=== PATIENT | male | born 1940 | race Caucasian/White ===

== ENCOUNTER 2017-01-05 14:24 | Inpatient (IN) | payer MEDICARE ==
[~2017-01-05] VITALS: Ht 189.2 cm; Wt 141.1 kg
[2017-01-09] MEDS ORDERED: RAPA8CAP PO (12:22)
[2017-01-09] MEDS ORDERED: VESI10TA PO (12:22)
[2017-01-09] MEDS ORDERED: TOPR25TA PO (12:22)
[2017-01-09] MEDS ORDERED: ESCI20TA PO (12:22)
[2017-01-09] MEDS ORDERED: GABA300C5 PO (12:22)
[2017-01-09] MEDS ORDERED: VALS320T4 PO (12:22)
[2017-01-09] MEDS ORDERED: ATOR10TA15 PO (12:22)
[2017-01-09] MEDS ORDERED: MIRA50TA PO (12:22)
[2017-01-09] MEDS ORDERED: AMLO10TA2 PO (12:22)
[2017-01-09] MEDS ORDERED: COUM5TAB PO (12:22)
[2017-01-09] MEDS ORDERED: HYDR-3580 PO (12:22)
[2017-01-24] MEDS ORDERED: LACTATED RINGER'S 1000 ML IV PRN (05:45)
[2017-01-24] MEDS ORDERED: SODIUM CHLORID 0.9% 500 ML IV PRN (05:45)
[2017-01-24] MEDS ORDERED: VANCOMYCIN 1000 MG/NS 250 ML (for <70 kg) IV SCH ×2 (05:45)
[2017-01-24] MEDS ORDERED: CHLORHEXIDINE GLUCONATE 2 % 1 PACK (2 CLOTHS) TOPICAL PRN (05:45)
[2017-01-24] MEDS ORDERED: EXPAREL PERI-ARTICULAR INJECTION (TOTAL VOL. 60 ML) P-ARTICULR SCH ×2 (05:45)
[2017-01-24] MEDS ORDERED: METOPROLOL TARTRATE 25 MG TAB PO PRN (05:45)
[2017-01-24] MEDS ORDERED: POVIDONE IODINE 5% (ANTISEPSIS KIT) 4 APPLICATIONS EACH NARE PRN (05:45)
[2017-01-24] MEDS ORDERED: SODIUM CHLORIDE 0.9% IV SCH (05:45)
[2017-01-24] MEDS ORDERED: CHLORHEXIDINE GLUCONATE 4% SOLN 120 ML BTL TOPICAL SCH (05:45)
[2017-01-24] MEDS ORDERED: TRANEXAMIC ACID IV SCH (05:45)
[2017-01-24] MEDS ORDERED: INSULIN HUMAN REGULAR 1,000 UNITS/10 ML VIAL SQ PRN (05:45)
[2017-01-24 06:14] LABS: BLOOD, URINE NEG (NEG); COMMENT (UR) CULT NOT INDICATED; CULTURE IF INDICATED CULT NOT INDICATED; GLUCOSE,URINE NEG (NEG); KETONE, URINE NEG (NEG); MUCUS URINE FEW /lpf (OCC); NITRITE,URINE NEG (NEG); TRANSITIONAL EPI CELLS, URINE <1 /hpf; URINE COLOR YELLOW (YELLW/STRAW)
[2017-01-24] MEDS ORDERED: GENTAMICIN SULFATE 80 MG/2 ML VIAL ONE (06:15)
[2017-01-24 06:16] LABS: INTERNATIONAL NORMALIZED RATIO 1.1 RATIO; PROTHROMBIN TIME - PATIENT 12.6 SEC (9.8-11.6)
[2017-01-24] MEDS ORDERED: VANCOMYCIN HCL 1000 MG VIAL ONE (06:19)
[2017-01-24] MEDS: ceFAZolin 2 GM PREMIX 50 ML IV SCH ×6 (07:52→21:05)
[2017-01-24 08:47] LABS: BLOOD GAS BASE EXCESS 0.3 mmol/L (-2-2); BLOOD GAS CARBOXYHEMOGLOBIN 1.2 % (0-4); BLOOD GAS HCO3 25 mmol/L (22-26); BLOOD GAS METHEMOGLOBIN 1.4 % (0-2); BLOOD GAS O2 HGB SATURATION 96 % (90-100); BLOOD GAS OXYGEN CONTENT 18.2 Vol % (12.0-20.0); BLOOD GAS PCO2 47 mmHg (38-42); BLOOD GAS PO2 107 mmHg (61-120); BLOOD GAS TOTAL HGB 13.4 G/DL (12.0-16.0); CRITICAL VALUE NO; OXYGEN DEVICE VENTILATOR; TEMP CORR TO 98.6
[2017-01-24 08:48] LABS: STAT YES; VENT SETTINGS OR
[2017-01-24] MEDS ORDERED: ONDANSETRON HCL 4 MG/2 ML VIAL IVP PRN (09:15)
[2017-01-24] MEDS ORDERED: diphenhydrAMINE HCL 25 MG CAP PO PRN (09:15)
[2017-01-24] MEDS ORDERED: NALOXONE HCL 0.4 MG/ML AMP IV PRN (09:15)
[2017-01-24] MEDS ORDERED: SODIUM CHLORIDE 0.9% FLUSH 5 ML FLUSH IVF PRN (09:15)
[2017-01-24] MEDS ORDERED: MORPHINE SULFATE 4 MG/ML INJ IV PUSH PRN (09:15)
--- NOTE | 2017-01-24 09:17 | PD.OP ---
cc: Alden Zamarripa MD Operative Report Date of Surgery: Jan 24, 2017 Preoperative Diagnosis: Severe left hip osteoarthritis Postoperative Diagnosis: Procedure: Left total hip arthroplasty via posterior approach Anesthesia: Gen. Surgeon: Alden Zamarripa Document Control Clerk(s): Jules Ennis PA-C The surgical procedure was assisted by my physician bindery assistant. My P.A. presence was necessary throughout this case for the manipulation and positioning of the surgical extremity. My P.A. was assisting me throughout the duration of this procedure. The skill set of a physician bindery assistant was medically necessary to complete this procedure. During the surgical case the surgical dental assistant was working at the back table and the physician bindery assistant was directly assisting me. Operation and Findings: Weight bear as tolerated. DRAINS: 7-mm LUCAS drain. IMPLANTS USED DePuy Corail size [7] Rosser high offset stem with a size [58] [place] Gription cup and a [36+8.5] metal head. DETAILS OF PROCEDURE: This patient has a long history of hip pain. Patient was found to have severe osteoarthritis. The patient had radiographic evidence of joint space narrowing with [id number] arthritis and osteophytes around the acetabulum as well as the femoral head. There was also some cystic changes. The patient failed conservative treatment with pain medications, anti-inflammatories, physical therapy, assistive devices including a cane, as well as therapeutic injection of the hip. The patient wished to proceed with surgery and informed consent was obtained. Operative site was marked. I discussed both posterior approach and anterior approach with patient decision was made for posterior approach. Patient was brought to OR and placed on OR table. IV sedation and general anesthesia was administered by anesthesiologist. Patient was positioned lateral on the operating room table and was given IV antibiotics. Time-out procedure was performed. The operative hip and leg were prepped with alcohol followed by Hibiclens and draped in the usual sterile fashion. Clean Air Suite was used for this procedure. The procedure began with a 8-inch incision over the posterolateral thigh. Subcutaneous tissue was dissected with Bovie. The fascia of the iliotibial band was incised. Gluteus muscle was split in line with fibers. Charnley retractor was placed. Piriformis and external rotator muscles were identified and then released from the posterior femur. The hip capsule was incised and sutures were placed to help retract the capsule. At this point the femoral head and neck were identified. With soft tissue protected, oscillating saw was used to make a cut through the femoral neck, the femoral head was now removed. At this point attention was turned to preparation of the acetabulum. The labrum was excised. The acetabulum was sequentially reamed appropriately up to size 58. Care was taken to maintain appropriate version. A trial cup was placed and was found to be a good fit. A [place] cup was now fully impacted into the acetabulum and found to have excellent fit. A screw was placed into the dome of the cup for additional stability. Hole eliminator was now placed. The 36+410 liner was now impacted into the cup. At this point attention was turned towards preparation of the proximal femur. Retractors were placed around the proximal femur to allow for exposure. A box osteotome was used to remove the lateral cortex of the femoral neck. A broach was used to help lateralize the prosthesis. Canal finder was used to create a path down the canal. Next, the canal was sequentially reamed up to size 7. The canal was now sequentially broached up to size 7. This was an excellent fit. Calcar planer was placed. A trial head was placed and the hip was reduced. Trial head was now was placed and the hip was found to have excellent stability with good range of motion. The leg lengths were measured under clinically and found to be equal compared to preoperatively. Trial broach was removed. The summit size 7 high offset stem was opened. Stem was fully impacted into the proximal femur in appropriate version. The +8.5 femoral head was placed. The hip was again reduced. The wound was thoroughly irrigated. Hip capsule, external rotators, and iliotibial band was closed with #1 Vicryl. A drain was placed deep into the wound. Subcutaneous tissue was closed with 3-0 Vicryl and the skin was closed with ileana and Dermabond skin closure. The capsule layers were injected with a mixture of saline and bupivicaine. Dressings were applied. The patient was transferred to Recovery Room in stable condition. Alden Zamarripa MD Jan 24, 2017 09:17
[2017-01-24] MEDS ORDERED: Post-op Orders (for Pharmacy) MISC XX ONE (09:30)
[2017-01-24] MEDS ORDERED: MIDAZOLAM HCL 2 MG/2 ML VIAL ONE (09:43)
[2017-01-24] MEDS ORDERED: fentaNYL CITRATE 250 MCG/5 ML AMP ONE (09:43)
[2017-01-24] MEDS ORDERED: DO NOT ADM ANY ANTICOAGULANT DRUGS PRN (09:45)
[2017-01-24] MEDS ORDERED: *morphine SULFATE 8 MG/ML PERIprocedure ONLY ONE (10:02)
[2017-01-24] MEDS ORDERED: KETOROLAC TROMETHAMINE 30 MG/ML (IVP) VIAL ONE (10:02)
--- NOTE | 2017-01-24 10:21 | RADRPT ---
EXAM DATE/TIME: 01/24/2017 09:37 [facility] COMPARISON: No previous studies available for comparison. INDICATIONS : Post op left hip arthroplasty. MEDICAL HISTORY : None. SURGICAL HISTORY : Loop recorder. ENCOUNTER: Initial ACUITY: 1 day PAIN SCORE: Non-responsive. LOCATION: Left hip FINDINGS: Left total hip arthroplasty is noted. A screw backed acetabular component is present. Surgical clips, subcutaneous emphysema and a surgical drain are identified over the left hip. No obvious fractures. Degenerative changes of the lower lumbar spine. CONCLUSION: Satisfactory appearance of left hip arthroplasty with postoperative changes identified. Wesley Hay MD on January 24, 2017 at 10:18 Board Certified Radiologist. This report was verified electronically.
[2017-01-24 12:00] VITALS: BP 117/59; PULSE 80; RESP 18; TEMP 96; O2SAT 95
[2017-01-24] MEDS ORDERED: ONDANSETRON HCL 4 MG/2 ML VIAL IV PUSH ONE (12:00)
[2017-01-24] MEDS ORDERED: NEOSTIGMINE METHYLSULFATE 10 MG/10 ML VIAL IV PUSH ONE (12:00)
[2017-01-24] MEDS ORDERED: LACTATED RINGER'S 1000 ML INJ 1,000 ML IV ONE (12:00)
[2017-01-24] MEDS ORDERED: ePHEDrine/NS 25 MG/5 ML SYR IV ONE (12:00)
[2017-01-24] MEDS ORDERED: TRANEXAMIC ACID INJ 1,000 MG/10 ML AMP IV ONE (12:00)
[2017-01-24] MEDS ORDERED: PHENYLEPH/NS 1000 MCG/10 ML SYR IV ONE (12:00)
[2017-01-24] MEDS ORDERED: PROPOFOL 200 MG/20 ML AMP IV ONE (12:00)
[2017-01-24] MEDS ORDERED: BUPIVACAINE LIPOSOME PF 1.3% 20 ML VIAL INFIL ONE (12:00)
[2017-01-24] MEDS: KETOROLAC TROMETHAMINE 30 MG/ML (IVP) VIAL IV PUSH SCH ×2 (13:25→21:06)
[2017-01-24] MEDS ORDERED: SODIUM CHLORID 0.9% 500 ML INJ 500 ML IV SCH (13:45)
[2017-01-24 16:00] VITALS: BP 99/56; PULSE 71; RESP 18; TEMP 96.8; O2SAT 95
[2017-01-24] MEDS: WARFARIN SOD 5 MG TAB PO SCH (17:39)
[2017-01-24] MEDS: VANCOMYCIN INJ 1,000 MG in SODIUM CHLOR 0.9% 250 ML INJ 250 ML IV SCH (17:39)
[2017-01-24 19:45] VITALS: BP 100/52; PULSE 67; RESP 18; TEMP 98.1; O2SAT 94
[2017-01-24 20:52] VITALS: O2SAT 95
[2017-01-24] MEDS: SODIUM CHLORIDE 0.9% FLUSH 5 ML FLUSH IVF SCH (21:00)
[2017-01-24] MEDS: ATORVASTATIN 10 MG TAB PO SCH (21:06)
[2017-01-24] MEDS: GABAPENTIN 300 MG CAP PO SCH (21:06)
[2017-01-24 23:20] VITALS: BP 98/70; PULSE 75; RESP 18; TEMP 100.5; O2SAT 94
[2017-01-25] MEDS: ceFAZolin 2 GM PREMIX 50 ML IV SCH (02:02)
[2017-01-25] MEDS: ACETAMINOPHEN/HYDROcodone 325 MG/10 MG TAB PO PRN ×5 (02:08→21:14)
[2017-01-25 04:10] VITALS: BP 105/55; PULSE 100; RESP 18; TEMP 99.9; O2SAT 94
[2017-01-25] MEDS: KETOROLAC TROMETHAMINE 30 MG/ML (IVP) VIAL IV PUSH SCH ×2 (05:32→16:52)
[2017-01-25] MEDS: VANCOMYCIN INJ 1,000 MG in SODIUM CHLOR 0.9% 250 ML INJ 250 ML IV SCH (05:33)
--- NOTE | 2017-01-25 07:00 | PD.ORT.PN ---
Subjective Subjective Remarks POD 1 s/p left posterior MIKE states was out of bed with therapy yesterday. reports significant pain in hip Objective Vitals Vital Signs Date Time Temp Pulse Resp B/P (MAP) Pulse Ox O2 Delivery O2 Flow Rate FiO2 01/25/17 04:10 99.9 100 18 105/55 (72) 94 01/24/17 23:20 100.5 75 18 98/70 (79) 94 01/24/17 20:52 95 21 01/24/17 19:45 98.1 67 18 100/52 (68) 94 01/24/17 16:00 96.8 71 18 99/56 (70) 95 01/24/17 12:00 96.0 80 18 117/59 (78) 95 01/24/17 11:30 97.8 70 16 113/58 (76) 96 Nasal Cannula 2 01/24/17 11:00 78 14 112/56 (74) 96 Nasal Cannula 3 01/24/17 10:30 75 17 125/63 (83) 95 Nasal Cannula 3 01/24/17 10:15 76 19 117/59 (78) 93 Nasal Cannula 3 01/24/17 10:00 83 13 117/55 (75) 93 Nasal Cannula 3 01/24/17 09:45 83 14 136/60 (85) 93 Nasal Cannula 3 01/24/17 09:30 98.1 82 16 130/71 (90) 94 Nasal Cannula 4 I/O 01/24/17 01/24/17 01/24/17 01/25/17 01/25/17 01/25/17 07:00 15:00 23:00 07:00 15:00 23:00 Intake Total 2668 ml 2578 ml 240 ml Output Total 4060 ml 130 ml 590 ml Balance -1392 ml 2448 ml -350 ml Intake Oral 20 ml 1200 ml 240 ml IV Total 48 ml 1378 ml Other 2600 ml Output Urine Total 500 ml Drainage Total 60 ml 130 ml 90 ml Estimated Blood Loss 1000 ml Other 3000 ml # Voids 3 # Bowel Movements 0 0 Objective Remarks LLE: +knee brace. +drain. NVI. dressings clean and dry Assessment & Plan Assessment and Plan 1) Left Posterior MIKE - POD 1 -WBAT -posterior hip precautions -knee brace while in bed -plan for DC of drain POD 2 -dressing changes POD 2 -CM for rehab vs home -DVT prophylaxis. begin home dose coumadin and bridge with lovenox -pain control -f/u with Laila or [facility] in 2 weeks Jules Ennis Jan 25, 2017 07:00
[2017-01-25] MEDS ORDERED: WALKER/ADULT/FO1 MIS (07:03)
[2017-01-25] MEDS ORDERED: HYDR-3583 PO (07:03)
--- NOTE | 2017-01-25 07:04 | HHI.FF ---
Face to Face Verification Diagnosis: (1) S/P total hip arthroplasty Physical Therapy Gait training Hip: Total hip, Protocol: Left, Posterior hip precautions Canvas Knee Splint: Other (only while in bed) Left LE Weight Bearing: WB as tolerated Nursing Dressing Changes: Daily dressing change, Coverderm/Primapore (begin adding xeroform POD 10) I have seen patient Luis Matthews on 01/25/17. My clinical findings support the need for the requested home health care services because: Ltd mobility - disease progression I certify that my clinical findings support that this patient is homebound because: Post-op weakness Jules Ennis Jan 25, 2017 07:04
[2017-01-25 08:00] VITALS: BP 93/52; PULSE 77; RESP 17; TEMP 98.6; O2SAT 90
[2017-01-25 08:09] LABS: HEMATOCRIT 32.3 % (39.0-51.0); REVIEW FLAG FINAL
[2017-01-25 08:19] LABS: INTERNATIONAL NORMALIZED RATIO 1.1 RATIO
[2017-01-25] MEDS: METOPROLOL SUCCINATE 25 MG EXTENDED RELEASE TAB PO SCH (09:00)
[2017-01-25] MEDS: HYDROCHLOROTHIAZIDE 12.5 MG CAP PO SCH (09:00)
[2017-01-25] MEDS ORDERED: NON-FORMULARY DRUG (Valsartan-Hydrochlorothiazide 1 TAB) PO SCH (09:00)
[2017-01-25] MEDS: VALSARTAN 160 MG TAB PO SCH (09:00)
[2017-01-25] MEDS ORDERED: SOLIFENACIN 10 MG PO SCH (09:00)
[2017-01-25] MEDS: SODIUM CHLORIDE 0.9% FLUSH 5 ML FLUSH IVF SCH ×2 (09:00→21:13)
[2017-01-25] MEDS: TAMSULOSIN HCL 0.4 MG CAP PO SCH (10:09)
[2017-01-25] MEDS: ENOXAPARIN SODIUM 30 MG/0.3 ML SYRINGE SQ SCH ×2 (10:10→21:13)
[2017-01-25] MEDS: ESCITALOPRAM OXALATE 20 MG TAB PO SCH (10:10)
[2017-01-25 10:29] VITALS: O2SAT 96
[2017-01-25 12:00] VITALS: BP 97/50; PULSE 80; RESP 17; TEMP 97.7; O2SAT 92
[2017-01-25 16:00] VITALS: BP 98/50; PULSE 81; RESP 17; TEMP 98; O2SAT 90
[2017-01-25] MEDS: WARFARIN SOD 5 MG TAB PO SCH (16:52)
[2017-01-25 20:20] VITALS: BP 95/62; PULSE 93; RESP 17; TEMP 99.2; O2SAT 93
[2017-01-25] MEDS: DOCUSATE SODIUM 100 MG CAP PO SCH (21:14)
[2017-01-25] MEDS: ATORVASTATIN 10 MG TAB PO SCH (21:14)
[2017-01-25] MEDS: GABAPENTIN 300 MG CAP PO SCH (21:14)
[2017-01-26 01:30] VITALS: BP 99/55; PULSE 96; RESP 17; TEMP 97.8; O2SAT 93
[2017-01-26] MEDS: ACETAMINOPHEN/HYDROcodone 325 MG/10 MG TAB PO PRN ×4 (02:50→21:58)
--- NOTE | 2017-01-26 06:49 | PD.ORT.PN ---
Subjective Subjective Remarks POD 2 s/p left posterior MIEK states was out of bed with therapy yesterday. reports pain improved significantly. walked to joint class last week. Objective Vitals Vital Signs Date Time Temp Pulse Resp B/P (MAP) Pulse Ox O2 Delivery O2 Flow Rate FiO2 01/26/17 03:38 17 01/26/17 01:30 97.8 96 17 99/55 (70) 93 01/26/17 00:32 Room Air 01/25/17 20:20 99.2 93 17 95/62 (73) 93 01/25/17 16:00 98.0 81 17 98/50 (66) 90 01/25/17 12:00 97.7 80 17 97/50 (66) 92 01/25/17 10:29 96 01/25/17 08:00 98.6 77 17 93/52 (66) 90 I/O 01/25/17 01/25/17 01/25/17 01/26/17 01/26/17 01/26/17 07:00 15:00 23:00 07:00 15:00 23:00 Intake Total 240 ml 420 ml 480 ml 960 ml Output Total 590 ml 690 ml 1100 ml Balance -350 ml -270 ml 480 ml -140 ml Intake Oral 240 ml 420 ml 480 ml 960 ml Output Urine Total 500 ml 600 ml 1100 ml Drainage Total 90 ml 90 ml # Voids 1 # Bowel Movements 0 0 0 0 Result Diagram: 01/25/17 0630 Other Results Laboratory Tests Test 01/26/17 05:50 Objective Remarks LLE: +knee brace. +drain. NVI. dressings clean and dry Assessment & Plan Assessment and Plan 1) Left Posterior MIKE - POD 2 -WBAT -posterior hip precautions -knee brace while in bed -dressing changes daily -CM for rehab vs home -DVT prophylaxis. begin home dose coumadin and bridge with lovenox -pain control -plan for DC to SNF tomorrow -f/u with Laila or [facility] in 2 weeks Jules Ennis Jan 26, 2017 06:49
[2017-01-26 06:54] LABS: PROTHROMBIN TIME - PATIENT 11.6 SEC (9.8-11.6)
[2017-01-26 08:00] VITALS: BP 123/69; PULSE 90; RESP 18; TEMP 98.2; O2SAT 92
[2017-01-26] MEDS: ENOXAPARIN SODIUM 30 MG/0.3 ML SYRINGE SQ SCH ×2 (08:50→20:06)
[2017-01-26] MEDS: ESCITALOPRAM OXALATE 20 MG TAB PO SCH (08:50)
[2017-01-26] MEDS: DOCUSATE SODIUM 100 MG CAP PO SCH ×2 (08:50→20:06)
[2017-01-26] MEDS: TAMSULOSIN HCL 0.4 MG CAP PO SCH (08:50)
[2017-01-26] MEDS: HYDROCHLOROTHIAZIDE 12.5 MG CAP PO SCH (08:51)
[2017-01-26] MEDS: METOPROLOL SUCCINATE 25 MG EXTENDED RELEASE TAB PO SCH (08:51)
[2017-01-26] MEDS: VALSARTAN 160 MG TAB PO SCH (08:52)
[2017-01-26] MEDS: SODIUM CHLORIDE 0.9% FLUSH 5 ML FLUSH IVF SCH ×2 (08:52→20:06)
[2017-01-26 12:00] VITALS: BP 112/59; PULSE 90; RESP 18; TEMP 97.7; O2SAT 94
[2017-01-26 16:00] VITALS: BP 92/53; PULSE 104; RESP 18; TEMP 99.3; O2SAT 98
[2017-01-26] MEDS: WARFARIN SOD 5 MG TAB PO SCH (16:42)
[2017-01-26 20:05] VITALS: BP 98/57; PULSE 92; RESP 18; TEMP 99.3; O2SAT 95
[2017-01-26] MEDS: GABAPENTIN 300 MG CAP PO SCH (20:05)
[2017-01-26] MEDS: ATORVASTATIN 10 MG TAB PO SCH (20:05)
[2017-01-27 00:05] VITALS: BP 103/61; PULSE 93; RESP 18; TEMP 99.9; O2SAT 95
[2017-01-27] MEDS: ACETAMINOPHEN/HYDROcodone 325 MG/10 MG TAB PO PRN ×3 (00:56→08:33)
[2017-01-27] MEDS ORDERED: BISACODYL 10 MG SUPP RECTAL PRN (01:30)
[2017-01-27] MEDS ORDERED: MAGNESIUM HYDROXIDE SUSP 30 ML CUP PO PRN (01:30)
[2017-01-27 04:05] VITALS: BP 118/66; PULSE 80; RESP 18; TEMP 97; O2SAT 95
--- NOTE | 2017-01-27 07:01 | PD.ORT.PN ---
Subjective Subjective Remarks POD 3 s/p left posterior MIKE doing well. out of bed with therapy. reports ice gives significant relief Objective Vitals Vital Signs Date Time Temp Pulse Resp B/P (MAP) Pulse Ox O2 Delivery O2 Flow Rate FiO2 01/27/17 04:05 97.0 80 18 118/66 (83) 95 01/27/17 00:05 99.9 93 18 103/61 (75) 95 01/26/17 20:05 99.3 92 18 98/57 (71) 95 01/26/17 16:00 99.3 104 18 92/53 (66) 98 01/26/17 12:00 97.7 90 18 112/59 (76) 94 01/26/17 08:00 98.2 90 18 123/69 (87) 92 I/O 01/26/17 01/26/17 01/26/17 01/27/17 01/27/17 01/27/17 06:59 14:59 22:59 06:59 14:59 22:59 Intake Total 960 ml 600 ml 360 ml 240 ml Output Total 1100 ml 200 ml 650 ml Balance -140 ml 600 ml 160 ml -410 ml Intake Oral 960 ml 600 ml 360 ml 240 ml Output Urine Total 1100 ml 200 ml 650 ml # Voids 4 2 # Bowel Movements 0 0 0 0 Result Diagram: 01/25/17 0630 Objective Remarks LLE: +knee brace. +drain. NVI. dressings clean and dry Assessment & Plan Assessment and Plan 1) Left Posterior MIKE - POD 3 -WBAT -posterior hip precautions -knee brace while in bed -dressing changes daily -CM for rehab -DVT prophylaxis. begin home dose coumadin and bridge with lovenox -pain control -plan for DC to SNF today -f/u with Laila or [facility] in 2 weeks Jules Ennis Jan 27, 2017 07:01
[2017-01-27] MEDS ORDERED: CYCL1TAB29 PO (07:03)
[2017-01-27 08:00] VITALS: BP 123/62; PULSE 108; RESP 20; TEMP 97.6; O2SAT 92
[2017-01-27 08:06] LABS: PROTHROMBIN TIME - PATIENT 11.4 SEC (9.8-11.6)
[2017-01-27] MEDS: ENOXAPARIN SODIUM 30 MG/0.3 ML SYRINGE SQ SCH (08:29)
[2017-01-27] MEDS: METOPROLOL SUCCINATE 25 MG EXTENDED RELEASE TAB PO SCH (08:29)
[2017-01-27] MEDS: DOCUSATE SODIUM 100 MG CAP PO SCH (08:29)
[2017-01-27] MEDS: HYDROCHLOROTHIAZIDE 12.5 MG CAP PO SCH (08:30)
[2017-01-27] MEDS: TAMSULOSIN HCL 0.4 MG CAP PO SCH (08:31)
[2017-01-27] MEDS: VALSARTAN 160 MG TAB PO SCH (08:31)
[2017-01-27] MEDS: ESCITALOPRAM OXALATE 20 MG TAB PO SCH (08:31)
[2017-01-27] MEDS: SODIUM CHLORIDE 0.9% FLUSH 5 ML FLUSH IVF SCH (08:31)
[2017-01-27 09:40] VITALS: RESP 16
--- NOTE | 2017-01-27 12:22 | HHI.DS ---
Discharge Summary Admission Date Jan 24, 2017 at 05:13 Discharge Date: Jan 27, 2017 Admitting Diagnosis Osteo-arthritis of left hip Diagnosis: (1) S/P total hip arthroplasty Diagnosis: Principal ICD Codes: Z96.649 - Presence of unspecified artificial hip joint Procedures Left total hip arthroplasty with posterior approach CBC/BMP: 01/25/17 0630 Significant Findings Laboratory Tests Test 01/25/17 06:30 01/26/17 05:50 01/27/17 07:15 Hemoglobin 10.6 GM/DL (13.0-17.0) Hematocrit 32.3 % (39.0-51.0) Prothrombin Time 12.0 SEC (9.8-11.6) PE at Discharge LLE: +knee brace. +drain. NVI. dressings clean and dry Hospital Course Patient was admitted from outpatient basis for elective left total hip arthroplasty. He tolerated procedure well and was admitted to [address] [place] [address]. He was out of bed on postoperative day 0 with moderate discomfort. On possibly want he stated that he had significant pain. However, by postoperative day 2 the pain had subsided drastically. He was out of bed and ambulating well. He was hemodynamically stable and fit for discharge to a [facility] facility on postoperative day 3. He will follow-up in the office in [address] Ulloa or his PA. He'll remain fully weightbearing in observe posterior hip precautions. He will wear her knee brace while in bed. He'll keep his dressing clean and dry and change it daily. Pt Condition on Discharge: Fair Discharge Disposition: Discharge to SNF Discharge Instructions Diet Instructions: As Tolerated, No Restrictions Activities You Can Perform: Weight Bearing as Domitila Follow up Referrals: Orthopedics - 2 Weeks @ [facility] with Alden Ulloa MD New Medications: Cyclobenzaprine (Flexeril) 10 Mg Tab 10 MG PO TID for Muscle Spasm, #42 TAB 0 Refills Hydrocodone-Acetaminophen (Hydrocodone-Acetaminophen) 10-325 mg Tab 1 TAB PO Q4H PRN for PAIN, #60 TAB 0 Refills Walker/Adult/Folding (Walker/Adult/Folding) 1 Mis Mis EA .ROUTE DIRECTED, #1 0 Refills Continued Medications: Amlodipine (Amlodipine) 10 Mg Tab 10 MG PO DAILY for Blood Pressure Management, #30 TAB 0 Refills Atorvastatin (Atorvastatin) 10 Mg Tab 10 MG PO HS for Cholesterol Management, #30 TAB 0 Refills Escitalopram (Escitalopram) 20 Mg Tab 20 MG PO DAILY, #30 TAB 0 Refills Gabapentin (Gabapentin) 300 Mg Cap 300 MG PO HS, #60 CAP 0 Refills Metoprolol Succinate ER 24 HR (Toprol XL) 25 Mg Tab 25 MG PO DAILY, #30 TAB 0 Refills Mirabegron (Myrbetriq) 50 Mg Tab 50 MG PO DAILY for Urinary Symptom Managemen, #30 TAB 0 Refills Silodosin (Rapaflo) 8 Mg Cap 8 MG PO DAILY for Manage Prostate Problems, #30 CAP 0 Refills Solifenacin (Vesicare) 10 Mg Tab 10 MG PO DAILY for Urinary Symptom Managemen, #30 TAB 0 Refills Valsartan-Hydrochlorothiazide (Valsartan-Hydrochlorothiazide) 320-12.5 Mg Tab 1 TAB PO DAILY for Blood Pressure Management, #30 TAB 0 Refills Warfarin (Coumadin) 5 Mg Tab 5 MG PO HS for Blood Clot Prevention, #30 TAB 0 Refills Discontinued Medications: Hydrocodone-Acetaminophen (Hydrocodone-Acetaminophen) 7.5-325 mg Tab 1 TAB PO Q6H PRN for PAIN, TAB 0 Refills Jules Ennis Jan 27, 2017 12:22
== END 2017-01-27 11:58 | DRG 470 ==
LOC: HSDI 01-24 05:13 → N06B 01-24 11:41
PROVIDERS: ADMIT Orthopaedic Surgery Orthopaedic Trauma; ATTEND Orthopaedic Surgery Orthopaedic Trauma
PROC: 0SRB01A Replacement of Left Hip Joint with Metal Synthetic Substitute, Uncemented, Open Approach (ICD-10-PCS; principal; 2017-01-24 06:43)
DX: M16.12 Unilateral primary osteoarthritis, left hip (principal)
CPT/HCPCS: 73502; 81001; 82805; 85014; 85018; 85610; 86850; 86900; 86901; C1776; C9290; J0690; J1580; J1650; J1885; J2250; J2270; J2370; J2405; J2710; J3010; J3370; J7040; J7050; J7120; L1830

== ENCOUNTER → 2017-01-09 | Outpatient (CLI) | payer MEDICARE ==
[~2017-01-09] MED LIST: AMLO10TA2 PO; ATOR10TA15 PO; COUM5TAB PO; CYCL1TAB29 PO; ESCI20TA PO; GABA300C5 PO; HYDR-3580 PO; HYDR-3583 PO; MIRA50TA PO; RAPA8CAP PO; TOPR25TA PO; VALS320T4 PO; VESI10TA PO; WALKER/ADULT/FO1 MIS
[2017-01-09 12:24] LABS: BASOPHIL % 0.6 % (0.0-2.0); EOSINOPHIL # 0.1 TH/MM3 (0-0.4); EOSINOPHIL % 1.7 % (0.0-4.0); HEMATOCRIT 41.7 % (39.0-51.0); HEMO FLAGS DIFF FINAL; LYMPH % 20.6 % (9.0-44.0); LYMPHOCYTE # 1.5 TH/MM3 (1.0-4.8); MEAN CELL VOLUME 91.1 FL (80.0-100.0); MEAN CORPUSCULAR HEMOGLOBIN 31.3 PG (27.0-34.0); MEAN CORPUSCULAR HGB CONC 34.3 % (32.0-36.0); MONO % 7.5 % (0.0-8.0); NEUT % 69.6 % (16.0-70.0); PLATELET COUNT 218 TH/MM3 (150-450); RED BLOOD COUNT 4.58 MIL/MM3 (4.50-5.90); RED CELL DISTRIBUTION WIDTH 14.2 % (11.6-17.2); WHITE BLOOD COUNT 7.2 TH/MM3 (4.0-11.0)
[2017-01-09 12:38] LABS: APTT (PATIENT) 34.5 SEC (24.3-30.1); INTERNATIONAL NORMALIZED RATIO 1.6 RATIO; PROTHROMBIN TIME - PATIENT 18.5 SEC (9.8-11.6)
[2017-01-09 12:57] LABS: BICARBONATE 29.2 MEQ/L (21.0-32.0); POTASSIUM 3.9 MEQ/L (3.5-5.1)
[2017-01-09 13:37] LABS: BACTERIA, URINE MOD /hpf; BLOOD, URINE TRACE (NEG); COMMENT (UR) CULTURE INDICATED; CULTURE IF INDICATED CULTURE INDICATED; GLUCOSE,URINE NEG (NEG); KETONE, URINE NEG (NEG); SQUAMOUS EPITHELIAL CELL URINE <1 /hpf (0-5); URINE COLOR LIGHT-YELLOW (YELLW/STRAW)
[2017-01-09 13:39] LABS: NITRITE,URINE POS (NEG)
--- NOTE | 2017-01-09 18:36 | RADRPT ---
EXAM DATE/TIME: 01/09/2017 13:15 [facility] COMPARISON: No previous studies available for comparison. INDICATIONS : Evaluate for pneumonia, pneumothorax or communicable disease. Pre op for left hip replacement 01-24-17 MEDICAL HISTORY : None. SURGICAL HISTORY : loop recorder ENCOUNTER: Initial ACUITY: 1 day PAIN SCORE: 0/10 LOCATION: Bilateral chest FINDINGS: There is mild bibasilar scarring or atelectasis. No evidence of effusion. Cardiac contours are satisf actory. Implantable medication nurse is present. CONCLUSION: Mild basilar lung scarring Sourav Myers MD on January 09, 2017 at 18:34 Board Certified Radiologist. This report was verified electronically.
--- NOTE | 2017-01-10 15:52 | EKG ---
Date Performed: 01/09/2017 Time Performed: 12:03:56 PTAGE: 76 years EKG: SINUS BRADYCARDIA WITH FIRST DEGREE AV BLOCK LOW QRS VOLTAGE IN PRECORDIAL LEADS PATTERN CO NSISTENT WITH PULMONARY DISEASE ABNORMAL ECG NO PREVIOUS TRACING DOCTOR: Joyce Hopkins Interpretating Date/Time 01/10/2017 15:45:50
== END ==
LOC: CPRE 11:37
PROVIDERS: ATTEND Orthopaedic Surgery Orthopaedic Trauma
DX: Z01.812 Encounter for preprocedural laboratory examination (principal); Z01.811 Encounter for preprocedural respiratory examination; Z01.818 Encounter for other preprocedural examination; Z01.810 Encounter for preprocedural cardiovascular examination; M16.12 Unilateral primary osteoarthritis, left hip; M79.609 Pain in unspecified limb; Z79.01 Long term (current) use of anticoagulants; N39.0 Urinary tract infection, site not specified; B96.1 Klebsiella pneumoniae [K. pneumoniae] as the cause of diseases classified elsewhere; R00.1 Bradycardia, unspecified; I44.0 Atrioventricular block, first degree; R94.31 Abnormal electrocardiogram [ECG] [EKG]
CPT/HCPCS: 36415; 71020; 80048; 81001; 85025; 85610; 85730; 87077; 87086; 87186; 93005